=== PATIENT | female | born 1935 | race African-American/Black ===

== ENCOUNTER 2019-08-12 03:24 | Inpatient (IN) | payer MEDICARE, BC ==
[~2019-08-12] VITALS: Ht 157.5 cm; Wt 46.3 kg
--- NOTE | 2019-08-12 03:00 | NUR ---
Direct Admit Note DANNY GUNN admitted to [facility] unit as a direct admit per MD order. Patient oriented to MICHI MCDONALD RN primary RN, unit, room, bed, and unit policies regarding patient care and visiting hours. Patient weighed by bedscale and encouraged to call if they need something. All questions and concerns addressed, patient verbalized understanding. Hospitalist paged to make aware of patients arrival and awaiting orders.
[2019-08-12 03:35] VITALS: BP 122/72
--- NOTE | 2019-08-12 05:07 | NUR ---
Patient family at bedside. Per family and patient, they will bring the patient's home medications later on today due to them forgetting what she takes at home.
[2019-08-12 05:23] VITALS: BP 121/79
--- NOTE | 2019-08-12 05:44 | NUR ---
Patient's daughter called RN and informed RN that she will like for the hospital staff to contact the patient's primary MD "Molina Rudolph" the patients primary MD [phone]. Per daughter, she was going to call him at [phone] but would like hospital staff to call him so he can possibly follow the patient during her hospital visit.
[2019-08-12 05:46] LABS: Basophils # (auto) 0 uL; Basophils % (auto) 0.6 % (0.0-2.0); Eosinophils # (auto) 0.1 uL; Hematocrit 39.4 % (36.0-46.0); Hemoglobin 13.7 g/dL (12.2-16.2); Lymphocytes # (auto) 0.9 uL; Lymphocytes % (auto) 15.8 % (10.0-50.0); Mean Corpuscular Hemoglobin 32.8 pg (28.0-32.0); Mean Corpuscular Hgb Conc. 34.8 g/dL (32.0-36.0); Mean Corpuscular Volume 94.1 fL (80.0-100.0); Monocytes # (auto) 0.6 uL; Neutrophils # (auto) 4.2 uL; Neutrophils % (auto) 72.6 % (37.0-80.0); Nucleated Red Blood Cells % 0.1 %; Platelet Count (auto) 172 10^3/uL (140-450); Red Blood Cells 4.19 10^6/uL (4.0-5.20); Red Cell Distribution Width 12.7 % (11.8-14.3); White Blood Cell 5.8 10^3/uL (4.4-10.8)
[2019-08-12 05:59] LABS: Potassium 3.9 mmol/L (3.5-5.1)
[2019-08-12 06:04] LABS: Albumin 3.8 g/dL (3.4-5.0); BUN/Creatinine Ratio 16.5; Calcium 9.6 mg/dL (8.5-10.1)
[2019-08-12 06:06] LABS: Bilirubin, Total 1.6 mg/dL (0.2-1.0); Total Protein 6.6 g/dL (6.4-8.2)
[2019-08-12] MEDS ORDERED: SODIUM CHLORIDE 0.9% 1,000 ML IV SCH ×2 (06:07→07:20)
[2019-08-12] MEDS ORDERED: TAMSULOSIN HYDROCHLORIDE 0.4 MG CAP PO ONE (06:15)
[2019-08-12] MEDS ORDERED: ONDANSETRON HCL 4 MG/2 ML VIAL IV PRN (06:15)
[2019-08-12] MEDS ORDERED: ACETAMINOPHEN 325 MG TAB PO PRN (06:15)
[2019-08-12] MEDS ORDERED: SODIUM CHLORIDE 0.9% 500 ML IV ONE (06:15)
[2019-08-12] MEDS ORDERED: MORPHINE SULFATE 4 MG/ML SYR/VIAL IV PRN (06:15)
[2019-08-12] MEDS ORDERED: TEMAZEPAM 15 MG CAP PO PRN (06:15)
[2019-08-12 08:00] VITALS: BP 101/55
[2019-08-12] MEDS ORDERED: METF-370 PO (08:18)
[2019-08-12] MEDS ORDERED: DILT120T3 PO (08:18)
[2019-08-12] MEDS ORDERED: ROSU10TA16 PO (08:18)
[2019-08-12 08:47] LABS: Urine WBC None Seen /hpf (0 - 5)
[2019-08-12 09:17] LABS: Urine Bacteria NONE SEEN /hpf (None Seen); Urine Blood Negative /uL (Negative); Urine Specific Gravity 1.008 (1.001-1.035)
[2019-08-12] MEDS ORDERED: ENOXAPARIN SOD 40 MG/0.4 ML SYRINGE SC SCH (10:00)
[2019-08-12] MEDS ORDERED: FAMOTIDINE 20 MG TAB PO SCH (10:00)
[2019-08-12] MEDS: cefTRIAXone 1GM/50ML D5W 50 ML IV SCH (10:04)
[2019-08-12] MEDS: FAMOTIDINE 20 MG TAB PO SCH (10:05)
[2019-08-12] MEDS: HYDROcodone-ACET 5/325MG TAB PO PRN ×2 (10:06→16:00)
[2019-08-12 12:30] VITALS: BP 105/59
[2019-08-12] MEDS: SODIUM CHLORIDE 0.9% 1,000 ML IV SCH ×2 (14:58→17:42)
--- NOTE | 2019-08-12 15:34 | NUR ---
DR SELBY CALLED AND WANTS DR OLIVAS TO CALL HIM AT [phone]. THIS IS HIS PRIVATE PATIENT. I PAGED DR ZAPATA. AWAITING CALL BACK.
[2019-08-12 17:00] VITALS: BP 119/68
--- NOTE | 2019-08-12 17:00 | NUR ---
PATIENT REFUSED PEREIRA CATHETER.
[2019-08-12] MEDS ORDERED: MANNITOL FTV 25% 12.5 GM/50 ML 50 ML IV ONE (17:45)
[2019-08-12] MEDS: TAMSULOSIN HYDROCHLORIDE 0.4 MG CAP PO SCH (18:26)
[2019-08-12] MEDS: FUROSEMIDE 20 MG/2 ML VIAL IV SCH (18:27)
[2019-08-12 22:00] VITALS: BP 97/65
[2019-08-13 05:00] VITALS: BP 107/65
[2019-08-13] MEDS: SODIUM CHLORIDE 0.9% 1,000 ML IV SCH ×5 (05:05→21:36)
[2019-08-13] MEDS: FUROSEMIDE 20 MG/2 ML VIAL IV SCH ×2 (05:27→18:30)
[2019-08-13 06:32] LABS: Basophils # (auto) 0 uL; Basophils % (auto) 0.3 % (0.0-2.0); Eosinophils # (auto) 0 uL; Eosinophils % (auto) 0.4 % (0.0-7.0); Hematocrit 34.2 % (36.0-46.0); Hemoglobin 11.9 g/dL (12.2-16.2); Lymphocytes % (auto) 8.8 % (10.0-50.0); Mean Corpuscular Hemoglobin 32.6 pg (28.0-32.0); Mean Corpuscular Hgb Conc. 34.6 g/dL (32.0-36.0); Mean Corpuscular Volume 94.3 fL (80.0-100.0); Monocytes % (auto) 8.2 % (0.0-12.0); Neutrophils # (auto) 9.7 uL; Neutrophils % (auto) 82.3 % (37.0-80.0); Platelet Count (auto) 149 10^3/uL (140-450); Red Blood Cells 3.63 10^6/uL (4.0-5.20); Red Cell Distribution Width 12.7 % (11.8-14.3); White Blood Cell 11.8 10^3/uL (4.4-10.8)
[2019-08-13 06:44] LABS: Albumin 3.3 g/dL (3.4-5.0); Calcium 8.7 mg/dL (8.5-10.1); Potassium 3.6 mmol/L (3.5-5.1)
[2019-08-13 06:48] LABS: BUN/Creatinine Ratio 19.7; Bilirubin, Total 1.4 mg/dL (0.2-1.0); Phosphorus 2.5 mg/dL (2.5-4.90); Total Protein 5.9 g/dL (6.4-8.2)
[2019-08-13 08:00] VITALS: BP 123/67
[2019-08-13] MEDS: FAMOTIDINE 20 MG TAB PO SCH (08:56)
[2019-08-13] MEDS: cefTRIAXone 1GM/50ML D5W 50 ML IV SCH (08:56)
[2019-08-13] MEDS: DOCUSATE SOD 100 MG CAP PO PRN (09:42)
[2019-08-13 13:00] VITALS: BP 104/67
[2019-08-13] MEDS: HYDROcodone-ACET 5/325MG TAB PO PRN ×2 (16:51→23:35)
[2019-08-13 17:00] VITALS: BP 139/72
[2019-08-13] MEDS: TAMSULOSIN HYDROCHLORIDE 0.4 MG CAP PO SCH (18:26)
[2019-08-13 21:38] VITALS: BP 101/54
[2019-08-14] MEDS: SODIUM CHLORIDE 0.9% 1,000 ML IV SCH ×5 (02:20→21:36)
[2019-08-14 04:38] VITALS: BP 128/76
[2019-08-14] MEDS: FUROSEMIDE 20 MG/2 ML VIAL IV SCH ×2 (05:35→17:39)
[2019-08-14] MEDS: HYDROcodone-ACET 5/325MG TAB PO PRN ×3 (05:39→17:18)
[2019-08-14] MEDS: DOCUSATE SOD 100 MG CAP PO PRN ×2 (05:39→09:39)
[2019-08-14 06:46] LABS: Basophils # (auto) 0 uL; Basophils % (auto) 0.4 % (0.0-2.0); Eosinophils # (auto) 0.2 uL; Hematocrit 34.7 % (36.0-46.0); Lymphocytes # (auto) 0.9 uL; Lymphocytes % (auto) 8.7 % (10.0-50.0); Mean Corpuscular Hemoglobin 32.8 pg (28.0-32.0); Mean Corpuscular Hgb Conc. 34.7 g/dL (32.0-36.0); Mean Corpuscular Volume 94.5 fL (80.0-100.0); Monocytes % (auto) 10.7 % (0.0-12.0); Neutrophils # (auto) 7.6 uL; Neutrophils % (auto) 78.2 % (37.0-80.0); Platelet Count (auto) 146 10^3/uL (140-450); Red Blood Cells 3.67 10^6/uL (4.0-5.20); Red Cell Distribution Width 12.8 % (11.8-14.3); White Blood Cell 9.8 10^3/uL (4.4-10.8)
[2019-08-14 07:03] LABS: Potassium 3.5 mmol/L (3.5-5.1)
[2019-08-14 07:37] LABS: Albumin 3.2 g/dL (3.4-5.0); BUN/Creatinine Ratio 21.3; Bilirubin, Total 1.1 mg/dL (0.2-1.0); Calcium 8.6 mg/dL (8.5-10.1); Magnesium 2.5 mg/dL (1.6-2.6); Phosphorus 2.1 mg/dL (2.5-4.90); Total Protein 5.9 g/dL (6.4-8.2)
[2019-08-14 08:00] VITALS: BP 101/54
--- NOTE | 2019-08-14 08:00 | NUR ---
ASSESSMENT NOTE PT IS ALERT ORIENTED X4, RESTING IN BED COMFORTABLY, NO DISTRESS NOTED, ABLE TO SELF REPOSITION VERBALIS HER DEMANDS, AMBULATE TO BATHROOM NEEDED, CONTINUE STRAINING ALL URINE AFTER PT USE THE BATHROOM, FALL RISK PRECAUTIONS, CALL LIGHT WITHIN REACH
[2019-08-14 09:00] VITALS: BP 133/73
[2019-08-14] MEDS: FAMOTIDINE 20 MG TAB PO SCH (09:39)
[2019-08-14] MEDS: cefTRIAXone 1GM/50ML D5W 50 ML IV SCH (09:39)
--- NOTE | 2019-08-14 11:50 | NUR ---
DR OLIVAS AT BED SIDE FOLLOWING UP ON PT WITH NEW ORDERS
[2019-08-14] MEDS: LACTULOSE 20Gm/30ML SOLN PO PRN ×3 (12:20→23:48)
[2019-08-14 13:00] VITALS: BP 126/83
--- NOTE | 2019-08-14 15:58 | NUR ---
IV insertion IV access obtained, via clean sterile technique by inserting 22 gauge catheter at after attempt(s). IV secured properly. No trauma to site. Patient tolerated well. NOTE:
[2019-08-14 17:00] VITALS: BP 133/80
[2019-08-14] MEDS: TAMSULOSIN HYDROCHLORIDE 0.4 MG CAP PO SCH (17:39)
--- NOTE | 2019-08-14 18:46 | NUR ---
PT CONTINUE STABLE, CONTINUE MONITORING
--- NOTE | 2019-08-14 19:45 | NUR ---
Opening Shift Note Assumed care of patient, awake and alert oriented x4. No S/S of distress/SOB or pain noted. Bed is in lowest locked position with bed rails up x2 and call light is within reach of the patient. Instructed on POC and to call for assist PRN. Instructed patient that she will be NPO after midnight. Patient verbalized understanding. Addendum: 08/15/19 at 0558 by Jovana Solo RN RN Straining all of patients urine.
[2019-08-14 21:43] VITALS: BP 131/70
[2019-08-15] MEDS: SODIUM CHLORIDE 0.9% 1,000 ML IV SCH ×3 (02:10→12:00)
[2019-08-15 04:58] VITALS: BP 110/65
[2019-08-15] MEDS: FUROSEMIDE 20 MG/2 ML VIAL IV SCH ×2 (05:45→17:47)
--- NOTE | 2019-08-15 05:55 | NUR ---
CHG BATH DONE: PATIENTS SHEETS CLEANED, AND BODY CLEANED WITH CHG BATH. NEW GOWN PROVIDED. PATIENT TOLERATED WELL.
[2019-08-15 06:16] LABS: Basophils # (auto) 0 uL; Basophils % (auto) 0.4 % (0.0-2.0); Eosinophils # (auto) 0.2 uL; Eosinophils % (auto) 2.4 % (0.0-7.0); Hematocrit 30.3 % (36.0-46.0); Hemoglobin 10.9 g/dL (12.2-16.2); Lymphocytes # (auto) 0.8 uL; Mean Corpuscular Hemoglobin 33.6 pg (28.0-32.0); Mean Corpuscular Volume 93.4 fL (80.0-100.0); Monocytes % (auto) 12.5 % (0.0-12.0); Neutrophils # (auto) 5.6 uL; Neutrophils % (auto) 73.7 % (37.0-80.0); Platelet Count (auto) 133 10^3/uL (140-450); Red Blood Cells 3.25 10^6/uL (4.0-5.20); Red Cell Distribution Width 12.4 % (11.8-14.3); White Blood Cell 7.6 10^3/uL (4.4-10.8)
[2019-08-15 06:31] LABS: Potassium 3.2 mmol/L (3.5-5.1)
[2019-08-15 06:34] LABS: INR 1.01 (0.9-1.15); Partial Thromboplastin Time 28.5 sec (23.64-32.05)
[2019-08-15 06:49] LABS: Albumin 2.8 g/dL (3.4-5.0); BUN/Creatinine Ratio 9.5; Bilirubin, Total 1.1 mg/dL (0.2-1.0); Calcium 8.4 mg/dL (8.5-10.1); Magnesium 2.1 mg/dL (1.6-2.6); Phosphorus 2.1 mg/dL (2.5-4.90); Total Protein 5.6 g/dL (6.4-8.2)
[2019-08-15 08:00] VITALS: BP 116/62
--- NOTE | 2019-08-15 08:20 | NUR ---
PATIENT DOWN FOR NEPHROSTOMY TUBE PLACEMENT.
[2019-08-15 09:00] VITALS: BP 116/62
[2019-08-15] MEDS: FAMOTIDINE 20 MG TAB PO SCH (10:00)
[2019-08-15] MEDS ORDERED: LIDOCAINE 2%HCL (LOCAL ANESTH.) INJ 20ML MDV ONE ×2 (10:37→11:39)
[2019-08-15] MEDS ORDERED: fentaNYL CITRATE 100 MCG/2 ML VL ONE (11:01)
[2019-08-15] MEDS ORDERED: MIDAZOLAM HCL 1MG/1ML-2 ML VIAL ONE (11:01)
[2019-08-15] MEDS ORDERED: IODIXANOL 320MG/ML 100ML BTL IV ONE (11:10)
--- NOTE | 2019-08-15 12:24 | NUR ---
PATIENT RETURNED FROM [employer] FOR NEPHROSTOMY TUBE PLACEMENT. PATIENT HAS TUBE TO THE LEFT FLANK PATENT AND DRAINING RED TINGED FLUID. NO S/S OF DISTRESS NOTED OR PAIN. WILL CONTINUE TO MONITOR.
[2019-08-15] MEDS: cefTRIAXone 1GM/50ML D5W 50 ML IV SCH (12:40)
--- NOTE | 2019-08-15 15:17 | NUR ---
Nutrition Assessment Notes please see attached link for complete assessment Est. Needs BW 47 [id number] kcal (25-30 kcal/kgBW), 47-56 gms pro (1.0-1.2 gms/kgBW). Will continue to monitor pertinent labs and reassess nutrient need prn Addendum: 08/15/19 at [address] Amended: Links added.
--- NOTE | 2019-08-15 15:45 | NUR ---
NEPHROSTOMY BAG EMPTIED NEPHROSTOMY BAG 225 ML RED TINGED FLUID.
[2019-08-15] MEDS ORDERED: NEUTRA-PHOS TABLET PO ONE (16:15)
[2019-08-15] MEDS ORDERED: SOD CHL 0.9%/ KCL 40MEQ 1,000 ML IV ONE (16:15)
[2019-08-15] MEDS ORDERED: CALCIUM W/VIT D (600MG/400IU) TAB PO ONE (16:15)
[2019-08-15 17:07] VITALS: BP 117/56
--- NOTE | 2019-08-15 17:16 | NUR ---
NEPHROSTOMY DRAINAGE 375 ML
[2019-08-15] MEDS: TAMSULOSIN HYDROCHLORIDE 0.4 MG CAP PO SCH (17:48)
[2019-08-15] MEDS: NEUTRA-PHOS TABLET PO SCH (17:48)
--- NOTE | 2019-08-15 19:15 | NUR ---
NEPHROSTOMY BAG EMPTIED NEPHROSTOMY BAG 300 ML DARK ORANGE TINGED FLUID.
--- NOTE | 2019-08-15 19:30 | NUR ---
Opening Shift Note Assumed care of patient, awake and alert oriented x4. No S/S of distress/SOB or pain noted. Left nephrostomy tube patent and draining. Bed is in lowest locked position with bed rails up x2 and call light is within reach of the patient. Instructed on POC and to call for assist PRN.
--- NOTE | 2019-08-15 21:13 | NUR ---
EMPTIED NEPHROSTOMY BAG 125 ML DARK RED ORANGE TINGED FLUID.
[2019-08-15 21:38] VITALS: BP 123/57
[2019-08-15] MEDS: HYDROcodone-ACET 5/325MG TAB PO PRN (23:26)
--- NOTE | 2019-08-15 23:30 | NUR ---
EMPTIED NEPHROSTOMY BAG 100 ML DARK ORANGE TINGED FLUID, APPEARS CLEAR.
[2019-08-16 05:01] VITALS: BP 119/65
[2019-08-16 06:08] LABS: Basophils # (auto) 0 uL; Basophils % (auto) 0.5 % (0.0-2.0); Eosinophils # (auto) 0.2 uL; Eosinophils % (auto) 2.5 % (0.0-7.0); Hematocrit 31.3 % (36.0-46.0); Hemoglobin 11.1 g/dL (12.2-16.2); Lymphocytes # (auto) 1.3 uL; Lymphocytes % (auto) 20.3 % (10.0-50.0); Mean Corpuscular Hemoglobin 33.6 pg (28.0-32.0); Mean Corpuscular Hgb Conc. 35.6 g/dL (32.0-36.0); Mean Corpuscular Volume 94.4 fL (80.0-100.0); Monocytes # (auto) 0.9 uL; Monocytes % (auto) 13.9 % (0.0-12.0); Neutrophils % (auto) 62.8 % (37.0-80.0); Platelet Count (auto) 140 10^3/uL (140-450); Red Blood Cells 3.32 10^6/uL (4.0-5.20); Red Cell Distribution Width 12.3 % (11.8-14.3); White Blood Cell 6.3 10^3/uL (4.4-10.8)
[2019-08-16] MEDS: FUROSEMIDE 20 MG/2 ML VIAL IV SCH ×2 (06:14→18:00)
[2019-08-16 06:20] LABS: Albumin 2.8 g/dL (3.4-5.0); BUN/Creatinine Ratio 13.2; Calcium 9.1 mg/dL (8.5-10.1); Potassium 3.4 mmol/L (3.5-5.1)
[2019-08-16 06:23] LABS: Phosphorus 2.1 mg/dL (2.5-4.90); Total Protein 5.7 g/dL (6.4-8.2)
--- NOTE | 2019-08-16 06:34 | NUR ---
EMPTIED NEPHROSTOMY BAG 150 ML DARK RED ORANGE TINGED FLUID.
--- NOTE | 2019-08-16 07:05 | NUR ---
EMPTIED NEPHROSTOMY BAG 250 ML RED ORANGE TINGED FLUID.
[2019-08-16] MEDS: SODIUM CHLORIDE 0.9% 1,000 ML IV SCH ×2 (08:00→13:00)
[2019-08-16] MEDS: NEUTRA-PHOS TABLET PO SCH ×3 (08:22→18:58)
[2019-08-16] MEDS: FAMOTIDINE 20 MG TAB PO SCH (08:24)
[2019-08-16] MEDS: cefTRIAXone 1GM/50ML D5W 50 ML IV SCH (08:24)
[2019-08-16] MEDS: CALCIUM W/VIT D (600MG/400IU) TAB PO SCH (08:25)
[2019-08-16 08:43] VITALS: BP 114/60
--- NOTE | 2019-08-16 08:59 | NUR ---
250 drained from nephrostomy tube. Lite pink in color.
--- NOTE | 2019-08-16 11:30 | NUR ---
150 drained from nephrostomy tube. Medium red in color
--- NOTE | 2019-08-16 12:00 | NUR ---
Doctor Stuart at bedside
--- NOTE | 2019-08-16 12:06 | NUR ---
Paged Doctor Ian Benito awaiting call back.
[2019-08-16 12:31] VITALS: BP 107/66
--- NOTE | 2019-08-16 15:27 | NUR ---
150 drained from nephrostomy tube. Medium red in color
[2019-08-16 16:57] VITALS: BP 138/74
--- NOTE | 2019-08-16 17:55 | NUR ---
325 drained from nephrostomy tube. Medium red in color.
[2019-08-16] MEDS ORDERED: POTASSIUM CHL 20 Meq TABLET PO ONE (18:00)
[2019-08-16] MEDS: TAMSULOSIN HYDROCHLORIDE 0.4 MG CAP PO SCH (18:58)
--- NOTE | 2019-08-16 19:22 | NUR ---
RECEIVED PATIENT FROM DAY SHIFT RN. PATIENT RESTING IN BED. NO S/S OF DISTRESS NOTED. DENIED PAIN FOR NOW. NEPHROSTOMY IN PLACE DRAINING FRESH RED URINE. POC INSTRUCTED AND ENCOURAGED PATIENT TO CALL FOR GEAR REPAIR SUPERVISOR IF NEEDED. BED IN LOWEST POSITION WITH SIDE RAILS UP X 2. CALL WILLARD WITHIN REACH. ALARM ON. CONTINUE TO MONITOR FOR CHANGES Q1H AND PRN.
[2019-08-16 22:00] VITALS: BP 140/83
--- NOTE | 2019-08-16 22:37 | NUR ---
ASSISTED PATIENT TO BATHROOM. PATIENT HAD BM. AND EMPTIED 250ML FRESH RED URINE FROM NEPHROSTOMY. CONTINUE TO MONITOR.
--- NOTE | 2019-08-17 03:21 | NUR ---
PATIENT SLEEPING. NO S/S OF DISTRESS NOTED. ALARM ON. CONTINUE TO MONITOR.
--- NOTE | 2019-08-17 04:25 | NUR ---
ASSISTED PATIENT TO BATHROOM. PATIENT WALKED WELL WITH STEADY GAIT. EMPTIED FRESH RED URINE FROM NEPHROSTOMY. CONTINUE TO MONITOR.
[2019-08-17 05:00] VITALS: BP 122/83
[2019-08-17 05:57] LABS: Calcium 9.9 mg/dL (8.5-10.1); Potassium 4.1 mmol/L (3.5-5.1)
[2019-08-17 05:59] LABS: BUN/Creatinine Ratio 11.9
[2019-08-17] MEDS: FUROSEMIDE 20 MG/2 ML VIAL IV SCH ×2 (06:28→18:20)
--- NOTE | 2019-08-17 07:52 | NUR ---
250 LIGHT PINK URINE DRAINED FROM NEPHROSTOMY TUBE.
[2019-08-17] MEDS: NEUTRA-PHOS TABLET PO SCH ×3 (08:08→18:15)
[2019-08-17] MEDS: FAMOTIDINE 20 MG TAB PO SCH (08:09)
[2019-08-17] MEDS: CALCIUM W/VIT D (600MG/400IU) TAB PO SCH (08:09)
[2019-08-17] MEDS: cefTRIAXone 1GM/50ML D5W 50 ML IV SCH (08:10)
[2019-08-17 09:00] VITALS: BP 110/68
--- NOTE | 2019-08-17 11:19 | NUR ---
175 LIGHT TO MEDIUM ORANGE PINK URINE DRAINED FROM NEPHROSTOMY TUBE
--- NOTE | 2019-08-17 11:57 | NUR ---
CALLED DOWN TO RADIOLOGY PER TECH DOCTOR RAINA IS NOT IN TODAY AND NO RADIOLOGIST IS FAMILY REUNIFICATION SPECIALIST. RECEIVED PHONE NUMBER FOR MANUEL [phone] TO GET A HOLD OF DOCTOR BOBBY. CALLED AND LEFT MESSAGE FOR BOBBY PER COMMUNICATION ORDER AND NOTIFIED THAT NEPHROSTOMY TUBE/BAG IS LIGHT PINK TO MEDIUM PINKISH/RED IN COLOR. WILL AWAIT CALL BACK.
[2019-08-17 12:36] VITALS: BP 135/74
[2019-08-17 16:26] VITALS: BP 126/72
--- NOTE | 2019-08-17 17:00 | NUR ---
300 LIGHT TO MEDIUM ORANGE PINK URINE DRAINED FROM NEPHROSTOMY TUBE
[2019-08-17] MEDS: TAMSULOSIN HYDROCHLORIDE 0.4 MG CAP PO SCH (18:16)
--- NOTE | 2019-08-17 19:00 | NUR ---
Patient resting in bed awake and alert, respiration are even and unlabored. No S/S of distress noted. Care to be endorsed to Noc rn.
--- NOTE | 2019-08-17 19:18 | NUR ---
RECEIVED PATIENT FROM DAY SHIFT RN. PATIENT RESTING IN BED. NO S/S OF DISTRESS NOTED. DENIED PAIN FOR NOW. NEPHROSTOMY IN PLACE DRAINING CLEAR PINKISH URINE. EMPTIED 250ML. POC INSTRUCTED AND ENCOURAGED PATIENT TO CALL FOR INDUCTION COORDINATION ENGINEER IF NEEDED. BED IN LOWEST POSITION WITH SIDE RAILS UP X 2. CALL WILLARD WITHIN REACH. ALARM ON. CONTINUE TO MONITOR FOR CHANGES Q1H AND PRN.
[2019-08-17 21:55] VITALS: BP 117/61
--- NOTE | 2019-08-17 23:01 | NUR ---
ASSISTED PATIENT TO BATHROOM. PATIENT WALKED WELL WITH STEADY GAIT. EMPTIED LIGHT TO MEDIUM PINKISH URINE FROM NEPHROSTOMY. CONTINUE TO MONITOR.
--- NOTE | 2019-08-18 02:02 | NUR ---
PATIENT SLEEPING. NO S/S OF DISTRESS NOTED. ALARM ON. CONTINUE TO MONITOR.
--- NOTE | 2019-08-18 04:58 | NUR ---
PATIENT REFUSED BLOOD TEST. WILL TRY IT LATER. CONTINUE CARE.
--- NOTE | 2019-08-18 05:02 | NUR ---
150ML CLEAR MEDIUM PINKISH TO RED URINE DRAINED FROM NEPHROSTOMY. ENCOURAGED PATIENT TO DRINK MORE WATER. CONTINUE TO MONITOR.
[2019-08-18 05:27] VITALS: BP 116/59
[2019-08-18] MEDS: FUROSEMIDE 20 MG/2 ML VIAL IV SCH ×2 (06:18→18:40)
[2019-08-18] MEDS: NEUTRA-PHOS TABLET PO SCH ×3 (08:00→18:46)
[2019-08-18 09:00] VITALS: BP 113/65
[2019-08-18] MEDS: CALCIUM W/VIT D (600MG/400IU) TAB PO SCH (10:00)
[2019-08-18] MEDS: FAMOTIDINE 20 MG TAB PO SCH (10:36)
[2019-08-18] MEDS: cefTRIAXone 1GM/50ML D5W 50 ML IV SCH (10:37)
[2019-08-18 13:00] VITALS: BP 117/70
--- NOTE | 2019-08-18 16:43 | NUR ---
Hospitalist at bedside MD Payne at bedside, aware of patient's status. New orders received to dc abx IV. Awaiting Urology consult from Doctor Benito. Cont care
[2019-08-18 17:00] VITALS: BP 117/74
[2019-08-18] MEDS: TAMSULOSIN HYDROCHLORIDE 0.4 MG CAP PO SCH (18:39)
--- NOTE | 2019-08-18 19:30 | NUR ---
Opening shift note Assumed care of patient from day shift RN. Patient is A&O x4. Currently on RA with no s/s of SOB or distress. Denies pain at this time. Nephrostomy tube in left flank is intact and patent. Draining yellow urine to gravity. 150ml emptied from nephrostomy bag. POC discussed and patient verbalizes understanding. Patient is ambulatory at baseline without the use of assistive devices. Bed is in low locked position with side rails up x2. Call light is within reach and patient encouraged to call for assistance when needed. Will continue to monitor for changes PRN.
[2019-08-18 22:00] VITALS: BP 110/64
[2019-08-19 05:23] VITALS: BP 101/59
[2019-08-19] MEDS: FUROSEMIDE 20 MG/2 ML VIAL IV SCH ×2 (05:40→18:00)
[2019-08-19] MEDS: NEUTRA-PHOS TABLET PO SCH ×2 (08:57→12:00)
[2019-08-19 09:00] VITALS: BP 103/57
--- NOTE | 2019-08-19 09:02 | NUR ---
at bedside MD Spaulding at bedside, aware of patient's status. New orders received for kidney US to follow up left hydronephrosis. This rn called US and order was placed. Will cont care
[2019-08-19] MEDS: FAMOTIDINE 20 MG TAB PO SCH (09:40)
[2019-08-19] MEDS: CALCIUM W/VIT D (600MG/400IU) TAB PO SCH (09:41)
--- NOTE | 2019-08-19 10:20 | NUR ---
Spoke to Urologist MD Benito aware of patient's status including patient requesting to have nephrostomy tube removed and procedure to remove stone done as inpatient. Per MD Benito, procedure can be done as outpatient after Thursday and patient can be dc home today and follow up as outpatient. Will inform Hospitalist Dr. Garrett.
--- NOTE | 2019-08-19 12:19 | NUR ---
Hospitalist at bedside MD Garrett at bedside, spoke to patient and patient's daughter extensively regarding POC. Per patient's daughter, she is waiting for her "brother" to come so they can make a decision as where to go post dc from hospital. Awaiting CT results at this time. New orders received to dc tracys PO. Cont care
[2019-08-19 13:00] VITALS: BP 119/62
[2019-08-19] MEDS ORDERED: CALC600T80 PO (15:06)
[2019-08-19] MEDS ORDERED: LACT10SO3 PO (15:06)
[2019-08-19] MEDS ORDERED: DOCU100C8 PO (15:06)
[2019-08-19] MEDS ORDERED: ACE325T PO (15:06)
[2019-08-19] MEDS ORDERED: FAM20T PO (15:06)
[2019-08-19] MEDS ORDERED: CIP500T PO (15:06)
[2019-08-19] MEDS ORDERED: TAM04C PO (15:06)
--- NOTE | 2019-08-19 16:28 | NUR ---
Urology appointment made Spoke to Domitila with Dr Benito office and appointment for Thursday obtained as requested by MD Benito. Patient and daughter informed and verbalized understanding. Will dc as ordered
[2019-08-19 17:00] VITALS: BP 94/63
[2019-08-19] MEDS: TAMSULOSIN HYDROCHLORIDE 0.4 MG CAP PO SCH (18:00)
--- NOTE | 2019-08-19 18:34 | NUR ---
Discharge instructions given as ordered to patient, and after patient's consent, daughter at bedside. Encourage to follow up with PMD as instructed and Urologist as ordered. All questions and concerns addressed. Patient verbalized understanding. Medication reconciliation form completed and copy given to patient. IV removed with catheter intact, pressure dressing applied. Nephrostomy tube intact and patent. Patient instructed on care at home and how to empty it she verbalized understanding and returned demonstration. Patient taken to vehicle via wheelchair with all personal belongings, accompanied by staff and daughter. No distress noted at time of departure.
== END 2019-08-19 18:35 | disposition home or self-care (01) | DRG 694 ==
LOC: TELE-EAST 03:24 → EAST 20:18
PROVIDERS: ADMIT Nurse Practitioner; ATTEND Hospitalist
PROC: 0T9130Z Drainage of Left Kidney with Drainage Device, Percutaneous Approach (ICD-10-PCS; principal; 2019-08-15)
DX: N13.2 Hydronephrosis with renal and ureteral calculous obstruction (principal); Z68.1 Body mass index [BMI] 19.9 or less, adult; N13.9 Obstructive and reflux uropathy, unspecified; E03.9 Hypothyroidism, unspecified; E78.5 Hyperlipidemia, unspecified; I11.0 Hypertensive heart disease with heart failure; I50.9 Heart failure, unspecified; J45.909 Unspecified asthma, uncomplicated; E87.6 Hypokalemia; Z93.6 Other artificial openings of urinary tract status; Z79.899 Other long term (current) drug therapy; Z98.42 Cataract extraction status, left eye; Z98.41 Cataract extraction status, right eye
CPT/HCPCS: 36415; 71045; 74176; 76775; 76942; 80048; 80053; 81001; 83735; 84100; 85025; 85610; 85730; 86850; 86900; 86901; 93005; 99152; 99153; C1729; G0378; J0696; J2250; Q9967

== ENCOUNTER → 2019-08-22 | Outpatient (CLI) | payer MEDICARE, BC ==
[~2019-08-22] MED LIST: ACE325T PO; CALC600T80 PO; CIP500T PO; DOCU100C8 PO; FAM20T PO; IOHEXOL 300 MG/ML 100ML BOTTLE IJ ONE; LACT10SO3 PO; TAM04C PO
== END | disposition home or self-care (01) ==
LOC: XYW 11:26
PROVIDERS: ATTEND Urology
DX: N13.4 Hydroureter (principal); N13.30 Unspecified hydronephrosis
CPT/HCPCS: 76000; Q9967